=== PATIENT | male | born 1935 | race Caucasian/White ===

== ENCOUNTER 2017-10-11 07:46 | Day surgery (SDC) | payer MEDICARE, OTHER ==
[~2017-10-11] VITALS: Ht 170.2 cm; Wt 78.5 kg
[2017-10-11 08:07] VITALS: BP 109/58
[2017-10-11] MEDS ORDERED: COCAINE HCL 4% 2 ML SYR ONE (08:19)
[2017-10-11] MEDS ORDERED: MUPIROCIN 2% OINT 22 GM (BACTROBAN) TUBE ONE (08:19)
[2017-10-11] MEDS ORDERED: LIDOCAINE/EPI 1%-1:200,000 (XYLOCAINE) 10 ML VIAL ONE (08:19)
[2017-10-11] MEDS ORDERED: PHENYLEPHRINE 0.5% NASAL SPR (NEO-SYNEPHRINE) REG ONE (08:19)
[2017-10-11] MEDS ORDERED: proPOfol 200 MG/20 ML (DIPRIVAN) VIAL IV ONE (08:24)
[2017-10-11] MEDS ORDERED: SUCCINYLCHOLINE INJ 100 MG/5 ML SYR ONE (08:24)
[2017-10-11] MEDS ORDERED: LIDOCAINE PF 2% 5 ML (XYLOCAINE) VIAL ONE (08:24)
[2017-10-11 08:25] LABS: BASOPHILS # (AUTO) 0.1 10^3/uL (0.0-0.1); BASOPHILS % (AUTO) 1 % (0-10); EOSINOPHILS # (AUTO) 0.2 10^3/uL (0.0-0.3); EOSINOPHILS % (AUTO) 2 % (0-10); HEMATOCRIT 40 % (40-54); HEMOGLOBIN 13.2 G/DL (13.3-17.7); LYMPHOCYTES # (AUTO) 1.6 X 10^3 (1.0-4.0); LYMPHOCYTES % (AUTO) 15 % (12-44); MEAN CORPUSCULAR HEMOGLOBIN 31 PG (25-34); MEAN CORPUSCULAR HGB CONC 33 G/DL (32-36); MEAN CORPUSCULAR VOLUME 93 FL (80-99); MONOCYTES # (AUTO) 1.1 X 10^3 (0.0-1.0); MONOCYTES % (AUTO) 11 % (0-12); NEUTROPHILS # (AUTO) 7.6 X 10^3 (1.8-7.8); NEUTROPHILS % (AUTO) 72 % (42-75); PLATELET COUNT 245 10^3/uL (130-400); RED BLOOD COUNT 4.26 10^6/uL (4.35-5.85); WHITE BLOOD COUNT 10.7 10^3/uL (4.3-11.0)
[2017-10-11] MEDS ORDERED: fentaNYL INJECTION 100 MCG/2 ML AMP ONE (08:25)
[2017-10-11] MEDS ORDERED: PHENYLEPHRINE 100 MCG/ML 10 ML (ANESTHESIA) SYR ONE (08:55)
[2017-10-11] MEDS ORDERED: SEVOFLURANE (ULTANE) 15 ML INHAL SOLN ONE ×2 (08:55→09:38)
[2017-10-11] MEDS ORDERED: ceFAZolin 1,000 MG (ANCEF) VIAL ONE (09:07)
[2017-10-11] MEDS ORDERED: ceFAZolin INJECTION 1,000 MG in NS (IVPB) 50 ML IV ONE (09:30)
--- NOTE | 2017-10-11 09:32 | Progress Note-Pre Operative ---
Pre-Operative Progress Note H&P Reviewed The H&P was reviewed, patient examined and no changes noted. Date Seen by Provider: Oct 11, 2017 Time Seen by Provider: 08:00 Date H&P Reviewed: Oct 11, 2017 Time H&P Reviewed: 08:00 Pre-Operative Diagnosis: Left Posterior Epistaxis RUFUS HARVEY MD Oct 11, 2017 9:32 am
[2017-10-11] MEDS ORDERED: D5 1/2 NS W/KCL 20 MEQ/L 1,000 ML IV SCH (09:33)
[2017-10-11] MEDS ORDERED: HYDROcodone/APAP 5 MG/325 MG (LORTAB) TAB PO PRN (09:45)
[2017-10-11] MEDS ORDERED: ACETAMINOPHEN 325 MG TABLET/CAPLET (TYLENOL) PO PRN (09:45)
[2017-10-11] MEDS ORDERED: PHENYLEPHRINE 0.5% NASAL SPR (NEO-SYNEPHRINE) REG PRN (09:45)
[2017-10-11 10:30] VITALS: BP 105/53
[2017-10-11] MEDS ORDERED: GARL1TAB2 PO (10:50)
[2017-10-11] MEDS ORDERED: ATOR80TA76 PO (10:50)
[2017-10-11] MEDS ORDERED: NITR0.4T3 SL (10:50)
[2017-10-11] MEDS ORDERED: ASPI-999 PO (10:50)
[2017-10-11] MEDS ORDERED: DEXL60CA PO (10:50)
[2017-10-11] MEDS ORDERED: FINA5TAB6 PO (10:50)
[2017-10-11] MEDS ORDERED: RANI-515 PO (10:50)
[2017-10-11] MEDS ORDERED: FURO40TA4 PO (10:50)
[2017-10-11] MEDS ORDERED: DABI75CA3 PO (10:50)
[2017-10-11] MEDS ORDERED: LISI2.5T PO (10:50)
[2017-10-11] MEDS ORDERED: CARV6.252 PO (10:50)
[2017-10-11] MEDS ORDERED: POTA-51 PO (10:50)
[2017-10-11] MEDS ORDERED: OXYC-471 PO (10:50)
[2017-10-11 11:00] VITALS: BP 118/69
[2017-10-11] MEDS ORDERED: morphine INJ 10 MG/ML 1ML (SYR OR VIAL) IVP PRN (11:15)
[2017-10-11 11:36] VITALS: BP 118/69
== END 2017-10-11 11:36 | disposition home or self-care (01) ==
LOC: SDC 07:46
PROVIDERS: ATTEND Otolaryngology Otolaryngology/Facial Plastic Surgery
DX: R04.0 Epistaxis (principal); I48.91 Unspecified atrial fibrillation; E11.9 Type 2 diabetes mellitus without complications; E78.5 Hyperlipidemia, unspecified; I25.10 Atherosclerotic heart disease of native coronary artery without angina pectoris; Z95.1 Presence of aortocoronary bypass graft; Z79.82 Long term (current) use of aspirin; Z79.899 Other long term (current) drug therapy
CPT/HCPCS: 36415; 85025

== ENCOUNTER 2019-04-22 19:15 | Emergency (ER) | payer MEDICARE, OTHER ==
[~2019-04-22] VITALS: Ht 172.7 cm; Wt 72.6 kg
[~2019-04-22 19:15] MED LIST: ASPI-999 PO; ATOR80TA76 PO; CARV6.252 PO; DABI75CA3 PO; DEXL60CA PO; FINA5TAB6 PO; FURO40TA4 PO; GARL1TAB2 PO; LISI2.5T PO; NITR0.4T42 SL; OXYC-471 PO; POTA-51 PO; RANI-515 PO
[2019-04-22] MEDS ORDERED: LIDOCAINE BOLUS 100 MG/5 ML (IMS) SYR INJ ONE (19:25)
[2019-04-22] MEDS ORDERED: NS 1000 ML IV BAG IV ONE (19:25)
[2019-04-22] MEDS ORDERED: SODIUM BICARB 8.4% 50 MEQ/50 ML (ABBOTT) SYR INJ ONE (19:25)
[2019-04-22] MEDS ORDERED: EPINEPHrine 0.1 MG/ML 10 ML (HOSPIRA) SYR IJ ONE (19:25)
[2019-04-22] MEDS ORDERED: ATROPINE INJECTION 1 MG/10 ML SYR (ABBOTT) INJ ONE (19:25)
[2019-04-22] MEDS ORDERED: CALCIUM CHLORIDE 1 GM/10 ML (IMS) SYR INJ ONE (19:25)
[2019-04-22] MEDS ORDERED: NS 250 ML (IVPB) BAG IV ONE (19:25)
--- OUTSIDE RECORDS SUMMARY | 2019-04-22 19:28 | XMS REPORT | Continuity of Care Document ---
Author Organization Unknown Address Unknown Allergies There is no data. Medications There is no data. Problems There is no data. Procedures There is no data. Results There is no data. Encounters ACCT No. Visit Date/Time Discharge Status Pt. Type Provider Facility Loc./Unit Complaint [id number] 01/29/2019 10:30:00 01/29/2019 23:59:59 [facility]
[2019-04-22] MEDS ORDERED: NS IV 1000 ML 1,000 ML IV SCH (19:45)
[2019-04-22] MEDS ORDERED: MAGNESIUM 1 GM/100 ML IVPB 100 ML IV SCH (19:45)
[2019-04-22] MEDS ORDERED: EPINEPHrine INJECTION 1 MG/ML AMP ONE (19:53)
[2019-04-22] MEDS ORDERED: NS (IVPB) 0 ML ONE (19:53)
[2019-04-22 19:55] LABS: WHITE BLOOD COUNT 10.6 10^3/uL (4.3-11.0)
[2019-04-22 19:56] LABS: HEMATOCRIT 20 % (40-54); HEMOGLOBIN 5.8 G/DL (13.3-17.7); MEAN CORPUSCULAR HEMOGLOBIN 32 PG (25-34)
--- NOTE | 2019-04-22 19:56 | Diagnostic Imaging Report ---
INDICATION: Unresponsive, CODE BLUE FINDINGS: Portable view of the chest demonstrates an endotracheal tube in good position. Cardiomegaly is present with previous coronary artery bypass graft surgery. Small bilateral effusions are present. These may actually be a little larger since patient is supine. Bilateral diffuse infiltrates are present. This is probably related to edema. There are more focal infiltrates in the right lower lobe. IMPRESSION: 1. Congestive heart failure with focal infiltrates in the right lower lobe. 2. The endotracheal tube is in good position. Dictated by: Dictated on workstation # [id number]
[2019-04-22 20:00] LABS: BASOPHILS % (AUTO) 0 % (0-10); EOSINOPHILS % (AUTO) 2 % (0-10); LYMPHOCYTES % (AUTO) 30 % (12-44); MEAN CORPUSCULAR HGB CONC 30 G/DL (32-36); MEAN CORPUSCULAR VOLUME 107 FL (80-99); MEAN PLATELET VOLUME 11.4 FL (7.4-10.4); MONOCYTES % (AUTO) 2 % (0-12); NEUTROPHILS # (AUTO) 6.5 X 10^3 (1.8-7.8); NEUTROPHILS % (AUTO) 62 % (42-75); PLATELET COUNT 82 10^3/uL (130-400); RED CELL DISTRIBUTION WIDTH 14.9 % (10.0-14.5)
[2019-04-22 20:01] LABS: EOSINOPHILS # (AUTO) 0.2 10^3/uL (0.0-0.3); LYMPHOCYTES # (AUTO) 3.2 X 10^3 (1.0-4.0); MONOCYTES # (AUTO) 0.2 X 10^3 (0.0-1.0)
[2019-04-22] MEDS ORDERED: PHYTONADIONE (VIT. K) 10 MG/ML AMP ONE (20:09)
[2019-04-22 20:14] LABS: INR 3.3 (0.8-1.4)
--- NOTE | 2019-04-22 20:14 | NUR ---
1924-pt arrived via amr code blue with return of rosc x 3 after multiple drugs, last rosc return 1 minuite out of ed. 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 by ems here assisting code 1950-[place] 16 fr placed per TMW Rn, blood again suctioned from ett 1956-16 fr Ng placed to left nare, 1 amp epi given for decreased perfusion, no peripheral pulses detectable, central pulses weak 2000-epi gtt 1mg/250 started for decreased perfusion 2001-1 unit 0 neg blood started b/p 56/40 2002-blood being hand pumped in pt b/p 160/88 2011-right sided chest needle decompression performed per flight crew, bradycardic hr-20's 2012-atropine 0.5 mg given 2013-no peripheral or central pulses, agonal rythm noted, code called per Dr John efforts terminated 2016-cardiac ultrasound performed by Dr John with no mechanical heart activity
--- OUTSIDE RECORDS SUMMARY | 2019-04-22 20:18 | XMS REPORT | Continuity of Care Document ---
Author Organization Unknown Address Unknown Allergies There is no data. Medications There is no data. Problems There is no data. Procedures There is no data. Results There is no data. Encounters ACCT No. Visit Date/Time Discharge Status Pt. Type Provider Facility Loc./Unit Complaint [id number] 01/29/2019 10:30:00 01/29/2019 23:59:59 [facility]
--- NOTE | 2019-04-22 20:32 | ED CPR ---
HPI-CPR General Chief Complaint: postcardiac arrest Stated Complaint: CARDIAC ARREST Source of Information: EMS, EMS Notes Reviewed Exam Limitations: Other (clinical condition) History of Present Illness Date Seen by Provider: Apr 22, 2019 Time Seen by Provider: 07:55 Initial Comments Patient is an 83-year-old who presents post witnessed cardiac arrest. 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 Patient has approximately 1 hour prior to the arrival and 20 minutes of infield compressions prior to return of spontaneous circulation. Patient was process of being transferred to [facility] he experienced cardiac arrest during transport and was emergently rerouted to this facility. Patient witnessed V. fib, given numerous doses of epinephrine and amiodarone bolus and drip and elect dali cardioversion. His spontaneous pulses on the arrival to this facility and is intubated with assisted respirations. Patient with frothy red pulmonary edema and endotracheal tube and around face and head. No reported amount prior to medical's symptoms prior to cardiac arrest. Witnessed Arrest: Yes Bystander CPR: No Down-Time Before ACLS: 20 Paramedics Initial Findings: PEA Tachycardia, Unresponsive, Weak Pulse Pre Hospital Treatment: Intubation Allergies and Home Medications Allergies Coded Allergies: cefoxitin (Unverified Allergy, Unknown, 10/11/17) ciprofloxacin (Unverified Allergy, Unknown, 10/11/17) cyclobenzaprine (Unverified Allergy, Unknown, 10/11/17) pregabalin (Unverified Allergy, Unknown, 10/11/17) sulfamethoxazole (Unverified Allergy, Unknown, 10/11/17) trimethoprim (Unverified Allergy, Unknown, 10/11/17) Home Medications Aspirin 81 Mg Tab.chew, 81 MG PO DAILY, (Reported) Atorvastatin Calcium 80 Mg Tablet, 80 MG PO DAILY, (Reported) Carvedilol 6.25 Mg Tablet, 6.25 MG PO BID, (Reported) Dabigatran Etexilate Mesylate 75 Mg Capsule, 75 MG PO BID, (Reported) Dexlansoprazole 60 Mg Capbp, 60 MG PO DAILY, (Reported) Finasteride 5 Mg Tablet, 5 MG PO DAILY, (Reported) Furosemide 40 Mg Tablet, 40 MG PO DAILY, (Reported) Garlic 1 Each Tablet, 1 EACH PO DAILY, (Reported) Lisinopril 2.5 Mg Tablet, 2.5 MG PO DAILY, (Reported) Ranitidine HCl 150 Mg Tablet, 150 MG PO DAILY, (Reported) Patient Home Medication List Home Medication List Reviewed: Yes Review of Systems Review of Systems Constitutional: no symptoms reported Past Gcqgokt-Ucqitw-Iznaca Hx Past Med/Social Hx: Reviewed Nursing Past Med/Soc Hx Patient Social History Type Used: Smokeless Tobacco Recent Foreign Travel: No Contact w/Someone Who Travel: No Recent Hopitalizations: No Immunizations Up To Date Date of Influenza Vaccine: Jul 03, 2017 Seasonal Allergies Seasonal Allergies: No Past Medical History Atrial Fibrillation, Coronary Artery Disease, Irregular Heartbeat Reproductive Disorders: No Physical Exam Vital Signs Capillary Refill : Height, Weight, BMI Height: 5'7.00" Weight: 173lbs. 0.0oz. 78.324736ty; 27.1 BMI Method: General Appearance: Other (unresponsive, agonal respirations assisted via bag valve mask and manual ventilations) HEENT: Other (pupils are reactive) Respiratory: Other (diminished breath sounds with coarse rales bilaterally, decreased chest wall rise on right, no bony or subcutaneous emphysema) Cardiovascular: Other Gastrointestinal: Soft Extremity: No Swelling Neurologic/Psychiatric: Other (GCS 3) Skin: Pallor Focused Exam Sepsis Stage: Ruled Out Departure Communication (Admissions) Patient lost circulation/pulses shortly after ED arrival and ggressively re suscitated on ED arrival. IV fluids, epinephrine, bicarbonate, atropine and calcium given. Patient with pulmonary edema and the less than 6. 2 units of O+ infused. Patient accepted to [facility] with likely contacted for transport. Upon further conversation with the patient's spouse, she confirms the patient had signed paper requesting a do not resuscitation order and confirm she wishes to honor his wishes should he lose circulation in the emergency department. Despite aggressive resuscitation efforts, the patient lost pulses prior to transfer. At 20:14, an ultrasound was used to confirm lack of cardiac activity. The patient was pronounced . Patient's family informed of patient passing and services offered. PCP and Amanda contacted. It appears as though the patient of natural causes. Impression Primary Impression: Cardiac arrest Additional Impression: Respiratory arrest Disposition: 20 Condition: Departure-Patient Inst. Referrals: SAE CARROLL MD (PCP/Family) Primary Care Physician YAMILETH BIGGS DO Apr 22, 2019 20:32
[2019-04-22 20:40] LABS: SODIUM 147 MMOL/L (135-145)
[2019-04-22 20:41] LABS: BUN/CREATININE RATIO 25; CARBON DIOXIDE 14 MMOL/L (21-32); CHLORIDE 121 MMOL/L (98-107); CREATININE SERUM 0.55 MG/DL (0.60-1.30); GFR ESTIMATED > 60; GLUCOSE 121 MG/DL (70-105); POTASSIUM 2.2 MMOL/L (3.6-5.0)
[2019-04-22 20:42] LABS: ALANINE AMINOTRANSFERASE 8 U/L (0-55); ALKALINE PHOSPHATASE 41 U/L (40-136); BILIRUBIN,TOTAL 0.2 MG/DL (0.1-1.0); CALCIUM 4.1 MG/DL (8.5-10.1); TOTAL PROTEIN 2.1 GM/DL (6.4-8.2)
--- NOTE | 2019-04-22 21:43 | NUR ---
[facility] notified of pt with ref #-[id number] [facility] notified, will be in to retrieve pt
--- NOTE | 2019-04-22 22:15 | NUR ---
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
--- NOTE | 2019-04-22 22:44 | NUR ---
home here for transport.
[2019-04-22 22:46] VITALS: BP 0/0
== END 2019-04-22 22:46 | disposition expired ==
LOC: EDUNIT# 19:15 → ER FS 19:24 → UNDOADMIN 19:30 → ICU 19:30 → ER FS 22:46
DX: I46.9 Cardiac arrest, cause unspecified (principal); I48.91 Unspecified atrial fibrillation; I25.10 Atherosclerotic heart disease of native coronary artery without angina pectoris; Z88.1 Allergy status to other antibiotic agents; Z88.2 Allergy status to sulfonamides; Z88.8 Allergy status to other drugs, medicaments and biological substances; Z79.82 Long term (current) use of aspirin
CPT/HCPCS: 36415; 71045; 80053; 82800; 83605; 83880; 84484; 85025; 85610; 85730; 86920; 93005